=== PATIENT | female | born 1970 | race Caucasian/White ===

== ENCOUNTER 2018-02-05 17:26 | Emergency (ER) | payer OTHER ==
[~2018-02-05] VITALS: Ht 160 cm; Wt 72.7 kg
[2018-02-05] MEDS ORDERED: METHOCARBAMOL 500 MG TABLET PO ONE (21:15)
[2018-02-05 21:44] VITALS: BP 142/79
== END 2018-02-05 21:50 | disposition home or self-care (01) ==
LOC: EMS 17:28
DX: M54.5 Low back pain (principal); M54.6 Pain in thoracic spine; G89.29 Other chronic pain; I10 Essential (primary) hypertension
CPT/HCPCS: 99283